=== PATIENT | female | born 1965 | race Caucasian/White ===

== ENCOUNTER 2019-04-04 18:58 | Observation (INO) | payer BC ==
[2019-04-04 19:32] LABS: #Basophils 0.1 thou/uL (0.0-0.2); #Eosinphils 0.3 thou/uL (0.0-0.7); #Lymphocytes 2.4 thou/uL (1.20-3.40); %Basophils 0.9 % (0.0-1.0); %Eosinophils 2.8 % (0.0-10.0); %Lymphocytes 21.9 % (21.0-51.0); %Monocytes 8.9 % (0.0-10.0); %Neutrophils 65.5 % (42.0-75.0); Mean Corpuscular HGB CONC 34.6 g/dL (32.0-36.0); Mean Corpuscular Hemoglobin 31.5 pg (27.0-31.0); Mean Platelet Volume 6.7 fL (7.4-10.4); Platelet Count 298 thou/uL (130-400); RBC Distribution Width 11.4 % (11.5-14.5); Red Blood Cell (RBC) Count 5.06 mill/uL (4.20-5.40); White Blood Cell (WBC) Count 10.7 thou/uL (4.8-10.8)
--- NOTE | 2019-04-04 19:52 | RAD ---
ONE VIEW CHEST: 04/04/19 HISTORY: Stabbing pain in region of sternum. Chest pain. COMPARISON: None. FINDINGS: The cardiac silhouette and pulmonary vasculature are within normal limits. The lungs are clear. Osse ous structures have a normal appearance. IMPRESSION: No acute cardiopulmonary process. POS: [facility]
[2019-04-04 19:56] LABS: ALT (SGPT) 19 U/L (8-55); AST (SGOT) 18 U/L (5-34); Albumin 4.9 g/dL (3.5-5.0); Alkaline Phosphatase 84 U/L (40-110); Anion Gap 16 mmol/L (10-20); BUN (Urea Nitrogen) 20 mg/dL (9.8-20.1); Bilirubin, Total 0.5 mg/dL (0.2-1.2); Calc. Creatinine Clearance 0 mL/min (70-130); Calcium 9.7 mg/dL (7.8-10.44); Carbon Dioxide 27 mmol/L (22-29); Chloride 99 mmol/L (98-107); Estimated GFR-MDRD 71; Globulin 2.8 g/dL (2.4-3.5); Glucose 94 mg/dL (70-105); Potassium 4.2 mmol/L (3.5-5.1); Protein, Total 7.7 g/dL (6.0-8.3); Sodium 138 mmol/L (136-145)
[2019-04-04] MEDS ORDERED: Nitroglycerin 0.4 MG TAB (25 Tab Bottle) PO PRN (21:59)
[2019-04-04] MEDS ORDERED: Acetaminophen 325 MG TAB PO PRN (21:59)
--- NOTE | 2019-04-04 22:22 | PDOC.HHP ---
Hospitalist HPI - History of Present Illness Epigastric pain, Nausea, diaphoresis History of Present Illness: 53/F with PMH HTN and HLD (resolved with weight loss in her 30s) presents for acute onset of epigastric pain starting at 1600. Reports in usual health, speaking with colleagues at work, when she went back to her office, drank a sip of decaffeinated coffee and sat down, immediately she developed epigastric pain , describes as sharp, 10/10, constant, with associated nausea and diaphoresis. Reports that her RUE became cold at one point, denies any numbness, tingling or weakness, also reports generalized mild headache and blurry vision. She has no significant cardiovascular history. 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 She proceeded to deep breathe without any relief of pain, she went to bathroom, had dry heaves and cough, she did not vomit. The episode lasted 45 minutes with complete resolution of all her symptoms, except she still reports a mild generalized headache. She denies any heart palpitations, SOB, LE swelling, fever, chills, diarrhea or dysuria. Patient decided to go to [facility] to get further evaluated. Reports recent dental surgery with prophylaxis Amoxicillin. Reports starting new job within the past year, reports stressful, reports 30 lbs weight gain in past 3 months. ED Course: At [facility], EKG performed, abnormal, ASA 324mg administered, patient sent to [facility] ER for further evaluation of abnormal EKG. Patient declined EMS and had spouse drive in personal vehicle. In [facility] ER: VS: 178/115, MAP: 136, Pulse: 88, Resp: 14, Pain: 2, O2 sat: 98 on (Room Air) EKG NSR, 82 HR, no ST or T wave changes. Trop negative CXR negative serum labs unremarkable. Hospitalist ROS - Review of Systems Constitutional: denies: fever, chills Eyes: reports: vision change (blurry vision resolved [employer]) ENT: denies: nose discharge, nose congestion, throat pain, throat swelling Respiratory: reports: cough. denies: shortness of breath, hemoptysis, SOB with excertion, wheezing Cardiovascular: reports: chest pain. denies: palpitations, edema Gastrointestinal: reports: nausea. denies: vomiting, diarrhea, constipation Genitourinary: denies: dysuria, frequency, hematuria Musculoskeletal: reports: other (RUE felt cold, resolved [employer]). denies: neck pain, shoulder pain Skin: denies: rash, lesions Neurological: denies: weakness, numbness, incoordination, change in speech Hospitalist History - Past Medical History Source: patient Cardiac: reports: HTN, Hyperlipidemia (Resolved with weight loss in her 30s) Pulmonary: denies: asthma, COPD LEATH[employer]: reports: Migraine (has not had episode "in very long time"). denies: CVA, Seizure Gastrointestinal: denies: Constipation, GI bleed Heme/Onc: reports: no pertinent history Hepatobiliary: reports: no pertinent history Psych: reports: no pertinent history Renal/: reports: no pertinent history Endocrine: reports: no pertinent history Dermatology: reports: no pertinent history - Past Surgical History Past Surgical History: reports: , Tonsillectomy, Other Other Surgical History: Dental surgery - Family History Family History: reports: diabetes mellitus, respiratory disorder - Social History Smoking Status: Never smoker Alcohol: reports: Occassional Drugs: reports: none Living Situation: With Family Domestic Violence: Negative Occupation: [employer] Activity level: independent ambulation - Exam General Appearance: NAD Eye: PERRL ENT: normocephalic atraumatic Neck: supple, no JVD, no thyromegaly, no lymphadenopathy, no carotid bruit Heart: no murmur, no gallops, no rubs, normal peripheral pulses Respiratory: CTAB, no wheezes, no rales, no ronchi, normal chest expansion Gastrointestinal: soft, non-tender, non-distended, normal bowel sounds, no palpable masses, no hepatomegaly, no splenomegaly, no guarding, no rigidity Extremities: no cyanosis, no clubbing, no edema Skin: normal turgor, no lesions, no rashes Neurological: cranial nerve grossly intact, no focal deficits Musculoskeletal: normal tone, normal strength Psychiatric: normal affect, A&O x 3 Hospitalist Results - Labs Result Diagrams: 04/04/19 19:19 04/04/19 19:19 Lab results: WBC 10.7 thou/uL (4.8-10.8) 04/04/19 19:19 Hgb 16.0 g/dL (12.0-16.0) 04/04/19 19:19 Hct 46.1 % (36.0-47.0) 04/04/19 19:19 MCV 91.0 fL (78.0-98.0) 04/04/19 19:19 Plt Count 298 thou/uL (130-400) 04/04/19 19:19 Neutrophils % 65.5 % (42.0-75.0) 04/04/19 19:19 Sodium 138 mmol/L (136-145) 04/04/19 19:19 Potassium 4.2 mmol/L (3.5-5.1) 04/04/19 19:19 Chloride 99 mmol/L (98-107) 04/04/19 19:19 Carbon Dioxide 27 mmol/L (22-29) 04/04/19 19:19 BUN 20 mg/dL (9.8-20.1) 04/04/19 19:19 Creatinine 0.84 mg/dL (0.6-1.1) 04/04/19 19:19 Glucose 94 mg/dL (70-105) 04/04/19 19:19 Calcium 9.7 mg/dL (7.8-10.44) 04/04/19 19:19 Total Bilirubin 0.5 mg/dL (0.2-1.2) 04/04/19 19:19 AST 18 U/L (5-34) 04/04/19 19:19 ALT 19 U/L (8-55) 04/04/19 19:19 Alkaline Phosphatase 84 U/L (40-110) 04/04/19 19:19 Troponin I Less than 0.010 ng/mL (< 0.028) 04/04/19 19:19 Serum Total Protein 7.7 g/dL (6.0-8.3) 04/04/19 19:19 Albumin 4.9 g/dL (3.5-5.0) 04/04/19 19:19 - EKG Interpretation EKG: NSR. - Radiology Interpretation Chest x-ray Status: report reviewed by ca Hospitalist H&P A/P - Problem (1) Chest pain Code(s): R07.9 - CHEST PAIN, UNSPECIFIED Status: Acute (2) Nausea Code(s): R11.0 - NAUSEA Status: Acute (3) Elevated blood pressure reading Code(s): R03.0 - ELEVATED BLOOD-PRESSURE READING, W/O DIAGNOSIS OF HTN Status : Acute - Plan Plan: Heart score 3. Cardiac monitoring. Trend troponins Check CKMB. ASA daily. Cardiac stress test in am. NPO after midnight. GI and DVT prophylaxis Check TSH, FLP, BMP, CBC in AM. Full Code.
[2019-04-04 22:58] LABS: Cardiac Risk 5.3 (Less than 4.5)
[2019-04-04] MEDS ORDERED: Aspirin 325 MG TAB PO SCH (23:00)
[2019-04-05 01:32] VITALS: BMI 30.4
[2019-04-05 05:33] LABS: #Basophils 0.1 thou/uL (0.0-0.2); #Eosinphils 0.4 thou/uL (0.0-0.7); #Lymphocytes 2.2 thou/uL (1.20-3.40); #Neutrophils 5.9 thou/uL (1.40-6.50); %Basophils 0.7 % (0.0-1.0); %Eosinophils 4.4 % (0.0-10.0); %Lymphocytes 23.1 % (21.0-51.0); %Monocytes 10.5 % (0.0-10.0); %Neutrophils 61.2 % (42.0-75.0); Hemoglobin 15.3 g/dL (12.0-16.0); Mean Corpuscular HGB CONC 34.7 g/dL (32.0-36.0); Mean Corpuscular Hemoglobin 31.5 pg (27.0-31.0); Mean Corpuscular Volume 90.9 fL (78.0-98.0); Mean Platelet Volume 6.9 fL (7.4-10.4); Platelet Count 272 thou/uL (130-400); RBC Distribution Width 11.4 % (11.5-14.5); Red Blood Cell (RBC) Count 4.86 mill/uL (4.20-5.40); White Blood Cell (WBC) Count 9.6 thou/uL (4.8-10.8)
[2019-04-05 05:59] LABS: Anion Gap 13 mmol/L (10-20); BUN (Urea Nitrogen) 17 mg/dL (9.8-20.1); Calc. Creatinine Clearance 124 mL/min (70-130); Calcium 9.3 mg/dL (7.8-10.44); Carbon Dioxide 25 mmol/L (22-29); Cardiac Risk 5.1 (Less than 4.5); Chloride 104 mmol/L (98-107); Cholesterol 234 mg/dl (< 200 Desired); Estimated GFR-MDRD 77; Glucose 133 mg/dL (70-105); HDL Cholesterol 46 mg/dL (>60 Neg Risk); LDL Cholesterol, Calculated 134 mg/dL; Potassium 3.9 mmol/L (3.5-5.1); Sodium 138 mmol/L (136-145); Triglycerides 269 mg/dL (Less than 150)
[2019-04-05] MEDS ORDERED: Enoxaparin Sodium 40 MG/0.4 ML SYRINGE SC SCH (09:00)
[2019-04-05] MEDS ORDERED: Famotidine 20 MG TAB PO SCH (09:00)
[2019-04-05] MEDS ORDERED: Aspirin 325 mg Enteric Coated Tablet PO SCH (09:00)
[2019-04-05] MEDS ORDERED: ADENOSINE 60 MG/20 ML VIAL ONE (15:44)
--- NOTE | 2019-04-05 16:41 | NM ---
Radionucleotide stress and rest myocardial perfusion scan with CT attenuation correction and SPECT im aging Left ventricular wall motion evaluation and ejection fraction HISTORY: Chest pain. FINDINGS: Adenosine protocol. Homogeneous uptake of radiotracer throughout the left ventricular myoca rdium. No focal perfusion defect or reversibility are apparent. QGS analysis of gated SPECT images shows no focal wall motion abnormalities. Ejection fraction calcul ated at greater than 80%. IMPRESSION: Normal myocardial perfusion scan. Normal LVEF.
[2019-04-05 17:17] VITALS: BP 137/73; TEMP 98
[2019-04-05] MEDS ORDERED: Atorvastatin Calcium 20 MG TAB PO SCH (21:00)
--- NOTE | 2019-04-06 09:39 | DIS ---
DATE OF ADMISSION: 04/04/2019 DATE OF DISCHARGE: 04/05/2019 FINAL DIAGNOSES: 1. Chest pain, acute coronary syndrome was ruled out, most likely related to GI source, resolved. 2. Elevated blood pressure reading, resolved. HOSPITAL COURSE: The patient is a 53-year-old female with past medical history of hypertension, hyperlipidemia, who presented for acute onset of epigastric pain started at 1600. Apparently, she had a sip of decaffeinated coffee and sat down immediately. She developed epigastric pain, described as sharp, 10/10, constant with associated nausea and diaphoresis. She denied any numbness, tingling, or weakness or blurred vision. She does not have any significant cardiovascular history. Apparently, she had exact same epigastric pain in the past secondary to old weightlifting injury when she was 20. The patient was admitted to the hospital through the emergency room where she underwent evaluation, which showed normal CBC and normal chemistry. Her troponin was less than 0.010. Her EKG showed normal sinus rhythm with some questionable Q-waves in insulated leads. Chest x-ray did not show any acute abnormalities. The patient underwent an exercise stress test which came back within normal limits. Also, she underwent nuclear stress test which showed normal wall motion. LVEF was estimated at greater than 80%. Her vitals at the time of discharge within normal limits. She does not have any pain. She is going to stay on heart healthy diet. ACTIVITIES: As tolerated. MEDICATIONS: At the time of discharge: 1. Vitamin B complex one a day. 2. Multivitamin one a day. 3. Claritin 10 mg daily. 4. Probiotic one a day. 5. Calcium carbonate 500 mg daily. FOLLOWUP: She is going to follow up with primary care physician in 1 week. Job ID: [id number]
--- NOTE | 2019-04-08 10:20 | STRESS ---
Acquisition Time: 2019-04-05 11:40:21 Total Exercise Time: 00:09:00 Test Indications: CHEST PAIN Medications: Protocol: TIM Max HR: 153 BPM 90% of Pred: 169 BPM Max BP: 144/072 mmHG Max Work Load: 10.1 METS RESTING ECG: NORMAL SINUS RHYTHM SYMPTOMS: DYSPNEA ON EXERTION NORMAL BP RESPONSE ECTOPY: NONE ECG STRESS: NO SIGNIFICANT CHANGES INTERPRETATION: NEGATIVE GXT Confirmed by BHANU HINES (2), medical transcription editor PAPITO HERMOSILLO ([id number]) on 04/08/2019 10:19:52 AM Referred By: GUILLAUME MARAVILLA Confirmed By:BHANU HINES
--- NOTE | 2019-04-10 14:03 | STRESS ---
Acquisition Time: 2019-04-05 15:12:24 Total Exercise Time: 00:04:00 Test Indications: CHEST PAIN Medications: Protocol: ADENOSINE Max HR: 106 BPM 62% of Pred: 169 BPM Max BP: 128/078 mmHG Max Work Load: 1.0 METS RESTING ECG: NORMAL SINUS RHYTHM SYMPTOMS: DYSPNEA ON EXERTION NORMAL BP RESPONSE ECTOPY: NONE ECG STRESS: NO SIGNIFICANT CHANGES INTERPRETATIONS: AWAIT NUCLEAR IMAGES FOR DEFINITIVE DIAGNOSIS Confirmed by BHANU HINES (2), social media editor PAPITO HERMOSILLO ([id number]) on 04/10/2019 2:02:36 PM Referred By: MD Dionicio VERGARA Confirmed By:BHANU HINES
== END 2019-04-05 18:42 | disposition home or self-care (01) ==
LOC: ERS 18:58 → 2SW 21:34
PROVIDERS: ADMIT Hospitalist; ATTEND Hospitalist
DX: R07.9 Chest pain, unspecified (principal); I10 Essential (primary) hypertension; R11.0 Nausea; E78.5 Hyperlipidemia, unspecified; M19.90 Unspecified osteoarthritis, unspecified site; Z79.899 Other long term (current) drug therapy; Z91.041 Radiographic dye allergy status
CPT/HCPCS: 36415; 71045; 78452; 80048; 80053; 80061; 83690; 84443; 84484; 85025; 93005; 93017; 94760; 96372; A9500; G0378; J0153; J1650

== ENCOUNTER 2019-05-11 09:00 | Outpatient (CLI) | payer BC | END 2019-05-11 09:01 | disposition home or self-care (01) | LOC: DTY/OP 09:00 | PROVIDERS: ATTEND Family Medicine | DX: E66.9 Obesity, unspecified (principal) | CPT/HCPCS: 97802 ==

== ENCOUNTER 2022-04-01 11:30 | Outpatient (CLI) | payer BC | END 2022-04-01 11:31 | disposition home or self-care (01) | LOC: ULT 11:30 | PROVIDERS: ATTEND Internal Medicine Gastroenterology | DX: R10.13 Epigastric pain (principal); M79.10 Myalgia, unspecified site; R53.83 Other fatigue; K76.0 Fatty (change of) liver, not elsewhere classified | CPT/HCPCS: 76705 ==

== ENCOUNTER 2023-12-22 09:24 | Outpatient (CLI) | payer BC | END 2023-12-22 09:25 | disposition home or self-care (01) | LOC: BICRAD 09:24 | PROVIDERS: ATTEND Internal Medicine Gastroenterology | DX: R10.13 Epigastric pain (principal); K76.0 Fatty (change of) liver, not elsewhere classified; R63.4 Abnormal weight loss; R19.8 Other specified symptoms and signs involving the digestive system and abdomen | CPT/HCPCS: 74019 ==

== ENCOUNTER 2024-03-13 14:46 | Outpatient (CLI) | payer BC | END 2024-03-13 14:47 | disposition home or self-care (01) | LOC: BICMAMMO 14:46 | PROVIDERS: ATTEND Family Medicine | DX: Z78.0 Asymptomatic menopausal state (principal) | CPT/HCPCS: 77080 ==